=== PATIENT | female | born 1970 | race Two or more races ===

== ENCOUNTER 2018-10-20 19:04 | Emergency (ER) | payer MEDICAID, OTHER ==
[~2018-10-20] VITALS: Ht 165.1 cm; Wt 72.6 kg
[2018-10-20] MEDS ORDERED: MORPHINE SULFATE 4 MG/ML SYR/VIAL IV ONE (20:00)
[2018-10-20] MEDS ORDERED: LORazepam 2MG/ML-1ML VIAL IM ONE (20:00)
[2018-10-20] MEDS ORDERED: ONDANSETRON HCL 4 MG/2 ML VIAL IV ONE (20:00)
[2018-10-20] MEDS ORDERED: LORazepam 2MG/ML-1ML VIAL IV ONE (20:15)
[2018-10-20 22:20] VITALS: BP 143/74
== END 2018-10-20 23:19 | disposition home or self-care (01) ==
LOC: ER 19:04
DX: S73.101A Unspecified sprain of right hip, initial encounter (principal); E11.9 Type 2 diabetes mellitus without complications; I10 Essential (primary) hypertension; W01.0XXA Fall on same level from slipping, tripping and stumbling without subsequent striking against object, initial encounter; Y93.89 Activity, other specified; Y99.8 Other external cause status; Y92.89 Other specified places as the place of occurrence of the external cause
CPT/HCPCS: 73502; 96374; 96375; 99283; J2270; J2405

== ENCOUNTER 2021-12-19 14:46 | Emergency (ER) | payer MEDICAID ==
[~2021-12-19] VITALS: Ht 165.1 cm; Wt 86.2 kg
[2021-12-19] MEDS ORDERED: KETOROLAC TROMETH 60MG/2ML VIAL IM ONE (15:15)
[2021-12-19 16:10] LABS: Urine Bacteria NONE SEEN /hpf (None Seen); Urine Blood Negative /uL (Negative); Urine WBC 4 /hpf (0 - 5)
[2021-12-19 16:14] LABS: Albumin 3.8 g/dL (3.4-5.0); BUN/Creatinine Ratio 16.3; Calcium 9.7 mg/dL (8.5-10.1); Potassium 3.9 mmol/L (3.5-5.1)
[2021-12-19 16:17] LABS: Bilirubin, Total 0.6 mg/dL (0.2-1.0); Total Protein 7.2 g/dL (6.4-8.2)
[2021-12-19 16:36] LABS: Basophils # (auto) 0 10 ^3/uL (0-0.2); Basophils % (auto) 0.6 % (0.0-2.0); Eosinophils # (auto) 0.1 10 ^3/uL (0-0.8); Eosinophils % (auto) 1.4 % (0.0-7.0); Hematocrit 41.5 % (36.0-46.0); Hemoglobin 13.9 g/dL (12.2-16.2); Lymphocytes % (auto) 26.3 % (10.0-50.0); Mean Corpuscular Hgb Conc. 33.6 g/dL (32.0-36.0); Mean Corpuscular Volume 83.1 fL (80.0-100.0); Monocytes # (auto) 0.5 10 ^3/uL (0-1.3); Monocytes % (auto) 7.2 % (0.0-12.0); Neutrophils # (auto) 4.9 10 ^3/uL (1.6-8.6); Neutrophils % (auto) 64.5 % (37.0-80.0); Nucleated Red Blood Cells % 0.2 %; Red Blood Cells 4.99 10^6/uL (4.0-5.20); Red Cell Distribution Width 13.2 % (11.8-14.3); White Blood Cell 7.5 10^3/uL (4.4-10.8)
[2021-12-19] MEDS ORDERED: TRAM-297 PO (16:59)
[2021-12-19 18:46] VITALS: BP 106/78
== END 2021-12-19 20:01 | disposition home or self-care (01) ==
LOC: ER 14:46
DX: R10.9 Unspecified abdominal pain (principal); M79.10 Myalgia, unspecified site; I10 Essential (primary) hypertension; E78.5 Hyperlipidemia, unspecified; E11.9 Type 2 diabetes mellitus without complications; Z90.49 Acquired absence of other specified parts of digestive tract
CPT/HCPCS: 36415; 74176; 80053; 81001; 82150; 83690; 85025; 96372; 99284; J1885

== ENCOUNTER 2022-03-16 13:21 | Day surgery (SDC) | payer MEDICAID ==
[2022-03-15 14:42] LABS: Basophils # (auto) 0.1 10 ^3/uL (0-0.2); Basophils % (auto) 0.8 % (0.0-2.0); Eosinophils # (auto) 0.2 10 ^3/uL (0-0.8); Hematocrit 41.3 % (36.0-46.0); Hemoglobin 13.5 g/dL (12.2-16.2); Lymphocytes # (auto) 1.3 10 ^3/uL (0.4-5.4); Lymphocytes % (auto) 17.4 % (10.0-50.0); Mean Corpuscular Hemoglobin 27.9 pg (28.0-32.0); Mean Corpuscular Hgb Conc. 32.7 g/dL (32.0-36.0); Mean Corpuscular Volume 85.2 fL (80.0-100.0); Monocytes # (auto) 0.5 10 ^3/uL (0-1.3); Monocytes % (auto) 6.1 % (0.0-12.0); Neutrophils # (auto) 5.4 10 ^3/uL (1.6-8.6); Neutrophils % (auto) 72.7 % (37.0-80.0); Nucleated Red Blood Cells % 0.1 %; Red Blood Cells 4.85 10^6/uL (4.0-5.20); Red Cell Distribution Width 13.3 % (11.8-14.3); White Blood Cell 7.5 10^3/uL (4.4-10.8)
[2022-03-15 14:54] LABS: Calcium 9.1 mg/dL (8.5-10.1); Potassium 4.2 mmol/L (3.5-5.1)
[2022-03-15 14:57] LABS: BUN/Creatinine Ratio 20.5; Bilirubin, Total 0.3 mg/dL (0.2-1.0); Total Protein 7.3 g/dL (6.4-8.2)
[~2022-03-16] VITALS: Ht 165.1 cm; Wt 80.7 kg
[~2022-03-16 13:21] MED LIST: EMPA1TAB3 PO; ERGO2000 PO; GABA300C10 PO; GLIM4TAB42 PO; HYDR-3682 PO; INSU1INJ19 SC; METF-372 PO; OMEP20TA PO; SIMV10TA84 PO; TRAM-297 PO
[2022-03-16] MEDS ORDERED: diphenhdrAMINE HCL 50 MG/1 ML VL ONE (14:10)
[2022-03-16] MEDS ORDERED: fentaNYL CITRATE 100 MCG/2 ML VL ONE (14:10)
[2022-03-16] MEDS ORDERED: LIDOCAINE VISCOUS 2% 15ML UD ONE (14:10)
[2022-03-16] MEDS: MIDAZOLAM HCL 5 MG/ML-1ML VIAL ONE ×2 (14:12→14:16)
[2022-03-16 14:55] VITALS: BP 133/86
== END 2022-03-16 15:15 | disposition home or self-care (01) ==
LOC: GI 13:21
PROVIDERS: ATTEND Internal Medicine Gastroenterology
DX: R10.9 Unspecified abdominal pain (principal); K29.90 Gastroduodenitis, unspecified, without bleeding; K44.9 Diaphragmatic hernia without obstruction or gangrene; K29.50 Unspecified chronic gastritis without bleeding; I10 Essential (primary) hypertension; E11.9 Type 2 diabetes mellitus without complications; Z90.49 Acquired absence of other specified parts of digestive tract; Z20.822 Contact with and (suspected) exposure to COVID-19
CPT/HCPCS: 36415; 43239; 80053; 82962; 85025; 88305; 88342; J1200; J2250; J3010; U0003; 86706; 86803; 87340; 99152